=== PATIENT | female | born 1950 | race Caucasian/White ===

== ENCOUNTER 2017-06-04 10:21 | Emergency (ER) | payer MEDICARE, OTHER ==
[~2017-06-04] VITALS: Ht 162.6 cm; Wt 79.0 kg
[2017-06-04] MEDS ORDERED: LISI10TA4 PO (10:44)
[2017-06-04] MEDS ORDERED: XARE15TA PO (10:44)
[2017-06-04] MEDS ORDERED: FURO40TA2 PO (10:44)
[2017-06-04] MEDS ORDERED: ATOR40TA75 PO (10:44)
[2017-06-04] MEDS ORDERED: PANT40TA2 PO (10:44)
[2017-06-04] MEDS ORDERED: XARE10TA PO (10:44)
[2017-06-04] MEDS ORDERED: PARO20TA3 PO (10:44)
[2017-06-04 11:27] LABS: BASO % 0.4 % (0.0-1.0); EOS # 0.2 K/mm3 (0.0-0.50); EOS % 1.7 % (0.0-3.0); LARGE UNSTAINED CELL # 0.1 K/mm3 (0.0-0.4); LARGE UNSTAINED CELL % 1.1 % (0.0-4.0); LYMPH # 0.7 K/mm3 (1.5-4.5); LYMPH % 7.4 % (24.0-44.0); MEAN CORPUSCULAR HEMOGLOBIN 28.4 pg (27.0-33.0); MEAN CORPUSCULAR HGB CONC 33.7 g/dl (32.0-36.5); MEAN CORPUSCULAR VOLUME 84.3 fl (80.0-96.0); MONO # 0.5 K/mm3 (0.0-0.8); MONO % 5.4 % (0.0-5.0); NEUTROPHILS % 83.9 % (36.0-66.0); PLATELET COUNT, AUTOMATED 170 k/mm3 (150-450); RED CELL DISTRIBUTION WIDTH 14.3 % (11.5-14.5); WHITE BLOOD COUNT 9.5 K/mm3 (4.0-10.0)
[2017-06-04 11:33] LABS: INR 2.02
--- NOTE | 2017-06-04 11:35 | REP ---
Clinical: Dyspnea and cough . Comparison: None . Findings: The mediastinum and cardiac silhouette are stable and within normal limits for portable technique. The lung bear are clear without acute consolidation, effusion, or pneumothorax. Skeletal structures are intact. Impression: No acute cardiopulmonary process appreciated. Signed by Silverio Vargas MD 06/04/2017 11:27 A
[2017-06-04] MEDS ORDERED: ONDANSETRON 4MG/2ML VIAL (J2405) IV ONE (11:45)
[2017-06-04] MEDS ORDERED: SODIUM CHLORIDE 0.9% 1000 ML IV ONE (11:45)
[2017-06-04] MEDS ORDERED: MORPHINE 4 MG/ML 1ML SYRINGE IV ONE ×2 (11:45→13:15)
[2017-06-04 11:50] LABS: ANION GAP 6 MEQ/L (8-16); BLOOD UREA NITROGEN 12 MG/DL (7-18); CALCIUM LEVEL 8.9 MG/DL (8.8-10.2); CARBON DIOXIDE LEVEL 31 MEQ/L (21-32); CHLORIDE LEVEL 101 MEQ/L (98-107); CREATININE FOR GFR 0.67 MG/DL (0.55-1.02); GLOMERULAR FILTRATION RATE > 60.0 (>45); GLUCOSE, FASTING 115 MG/DL (80-110); POTASSIUM SERUM 3.8 MEQ/L (3.5-5.1); SODIUM LEVEL 138 MEQ/L (136-145)
[2017-06-04 11:55] LABS: ALBUMIN 3.7 GM/DL (3.2-5.2); ALBUMIN/GLOBULIN RATIO 1.03 (1.00-1.93); BILIRUBIN,DIRECT 0.2 MG/DL (0.0-0.2); BILIRUBIN,TOTAL 0.7 MG/DL (0.2-1.0); TOTAL PROTEIN 7.3 GM/DL (6.4-8.2)
[2017-06-04] MEDS ORDERED: ISOVUE-370 76% 100ML VIAL (Q9967) As Ordered ONE (13:26)
--- NOTE | 2017-06-04 14:19 | REP ---
Clinical: Upper abdominal pain. Technique: Axial contrast enhanced images from the lung bases to the pubic symphysis using 100 ml Isovue 370 intravenous contrast material with coronal and sagittal re-formations. Findings: Lung bases demonstrate mild chronic emphysematous and interstitial changes. Visualized heart and pericardium normal. Liver, spleen, pancreas, bilateral adrenal glands and kidneys are normal. The patient is status post cholecystectomy. The enteric system is without obstruction or acute inflammatory process. Colonic diverticulosis noted without acute diverticulitis. Normal terminal ileum and appendix are identified in the right lower quadrant. Pelvis demonstrates normal bladder and evidence for prior hysterectomy. No ascites. No free air. No mass lesion. No significant adenopathy. Abdominal aorta without aneurysm or dissection. Musculoskeletal structures without focal osseous abnormality. Impression: Diverticulosis without acute diverticulitis. Lung bases demonstrate mild chronic emphysematous and interstitial changes. No free fluid, mass, or acute abdominopelvic pathology appreciated. Signed by Silverio Vargas MD 06/04/2017 02:10 P
--- NOTE | 2017-06-04 14:23 | REP ---
Clinical: Acute pleuritic chest pain. Technique: Axial contrast enhanced images from the thoracic inlet to the upper abdomen using 100 ml Isovue 370 intravenous contrast material with coronal and sagittal re-formations. Findings: Satisfactory enhancement of the pulmonary vasculature is achieved and no filling defects are identified to suggest pulmonary embolus. Thoracic aorta is normal caliber without aneurysm or dissection. Heart and pericardium are normal. The lung bear demonstrate chronic interstitial changes with bibasilar dependent changes. Mild right paratracheal adenopathy and lymph nodes are suggested measuring up to approximately 18 mm (image 45). No effusion. No pneumothorax. Tracheobronchial tree is patent. Surrounding musculoskeletal structures are intact. Evidence for prior mammoplasty. Impression: 1. No evidence for pulmonary embolus. 2. Right paratracheal adenopathy requires followup. 3. Lung bear demonstrate chronic interstitial changes without acute pleuroparenchymal process. Signed by Silverio Vargas MD 06/04/2017 02:14 P
[2017-06-04] MEDS ORDERED: GI COCKTAIL 50ML BTL(HYOSCYAMINE/MAALOX/LIDOCAINE VISCOUS)(1:3:1) PO ONE (14:45)
[2017-06-04] MEDS ORDERED: SUCRALFATE SUSP 1GM/10ML UD PO ONE (15:15)
[2017-06-04] MEDS ORDERED: SUCR1SS PO (17:04)
[2017-06-04 17:30] VITALS: BP 163/90
[2017-06-04 17:32] VITALS: O2SAT 92
--- NOTE | 2017-06-05 07:25 | ECGEPIP ---
Stationary ECG Study [facility] - ED Test Date: 2017-06-04 Pat Name: JACKELINE TANNER Department: Room: - Gender: F Fisher Oyster: MICHAEL : 1950 Requested By: Kell Melendez Order Number: [id number] Reading MD: Kell Melendez Measurements Intervals [place] Rate: 80 P: 50 NM: 172 QRS: -40 QRSD: 94 T: 22 QT: 362 QTc: 420 Interpretive Statements SINUS RHYTHM MARKED LEFT AXIS DEVIATION PATTERN CONSISTENT WITH PULMONARY DISEASE MINIMAL VOLTAGE CRITERIA FOR LVH, CONSIDER NORMAL VARIANT SEPTAL MYOCARDIAL INFARCTION, OF INDETERMINATE AGE NO PRIOR FOR COMPARISON Electronically Signed On 06-05-2017 7:25:29 EDT by Kell Melendez
--- NOTE | 2017-06-09 12:03 | ED PDOC ---
Post-Departure Follow-Up certified letter sent to pt re formal read of cta for fu Herminia Rivera MD Jun 09, 2017 12:03
== END 2017-06-04 17:48 | disposition home or self-care (01) ==
LOC: M ED 10:21
DX: R07.9 Chest pain, unspecified (principal); I10 Essential (primary) hypertension; E78.4 Other hyperlipidemia; I48.91 Unspecified atrial fibrillation; Z85.3 Personal history of malignant neoplasm of breast; Z85.72 Personal history of non-Hodgkin lymphomas; Z79.01 Long term (current) use of anticoagulants
CPT/HCPCS: 36415; 71010; 71275; 74177; 80048; 80076; 82550; 82553; 83605; 83690; 83880; 84443; 84484; 85025; 85610; 87040; 93005; 93041; 94760; 96374; 96375; 96376; 99285; J2405; Q9967